=== PATIENT | female | born 1950 | race Hispanic/Latino ===

== ENCOUNTER → 2024-11-29 | Outpatient (CLI) | payer OTHER ==
--- NOTE | 2024-11-29 16:20 | HMCSR ---
APPROVED REPORT EXAM: Two-dimensional and M-mode echocardiogram with Doppler and color Doppler. INDICATION ICD: Cardiac murmur, unspecified R01.1 2D Dimensions RVDd4.3 cmLVEF(%)55.9 (>50%)LVED Vol(simp.)75.0 mL IVSd1.0 (0.7-1.1cm)FS(%)30 %LVES Vol(simp.)33.0 mL LVDd5.6 (3.8-5.6cm)LA (2D)4.1 (1.6-4.0cm)LVEF(%, simp.)56 % PWd0.9 (0.7-1.1cm)Ao Root(2D)2.8 (2.0-3.7cm)LA ESV INDEX (BP)33.93 mL/m2 LVDs4.0 (2.5-4.0cm)LVOT diam1.6 (1.8-2.4cm) IVC diam1.6 cm M-Mode Dimensions EPSS0.9 cm LA (MM)4.3 (1.6-4.0cm) Ao Root(MM)2.9 (2.0-3.7cm) Aortic Valve AoV Vmax1.6 m/[place] Peak GR10.3 mmHgLVOT Vmax1.3 m/s AoV VTI0.4 mAo Mean GR5.3 mmHgLVOT VTI0.30 m BARI (VMAX)1.78 cm2Al P1/2T434 msAVA (VTI) 1.8 cm2 Mitral Valve MV E Vmax59.9 cm/sDECEL Pujf304 ms MV A Dfda167.9 cm/sP 1/2 T46 ms E/A ratio0.6MVA (PHT)4.8 cm2 TDI E/E' Axpxvf69.1E/E' Lateral9.2 Medial E' Peak V3.97 cm/sLateral E' Peak V6.49 cm/s Pulmonary Valve PV Vmax1.1 m/sPV VTI0.27 mPV Mean GR2.8 mmHg PV Peak GR5.0 mmHg Left Ventricle The left ventricle is normal size. There is normal LV segmental wall motion. There is normal left juan tricular wall thickness. LVEF is 55-60%. Indeterminate diastolic dysfunction. Right Ventricle The right ventricle is normal size. The right ventricular systolic function is normal. Atria The left atrium is mildly dilated. The right atrium size is normal. Aortic Valve The aortic valve is normal in structure. Trace-mild aortic regurgitation. There is no aortic valvular stenosis. Mitral Valve The mitral valve is normal in structure. Mitral regurgitation is trace There is no mitral valve steno sis. Tricuspid Valve The tricuspid valve is normal in structure. There is trace tricuspid valve regurgitation noted. Pulmonic Valve Pulmonic valve is not well visualized. There is no pulmonic valvular regurgitation. Great Vessels The aortic root is normal in size. The IVC is normal in size and collapses >50% with inspiration. Pericardium There is no pericardial effusion. Other Information Quality : Average Conclusion The left ventricle is normal size. LVEF is 55-60% with normal LV segmental wall motion. Indeterminate diastolic dysfunction. The right ventricular systolic function is normal. The left atrium is mildly dilated. Trace-mild aortic regurgitation. There is no pericardial effusion.
== END | disposition home or self-care (01) ==
LOC: RAH 13:00
PROVIDERS: ATTEND Internal Medicine
DX: I35.1 Nonrheumatic aortic (valve) insufficiency (principal); R01.1 Cardiac murmur, unspecified
CPT/HCPCS: 93306

== ENCOUNTER → 2024-12-21 | Outpatient (CLI) | payer OTHER ==
--- NOTE | 2024-12-21 11:31 | HMCIMG ---
CLINICAL INDICATION: Asymptomatic menopausal state COMPARISON: None TECHNIQUE: Bone densitometry is performed of the lumbar spine and left hip. FINDINGS: Total BMD of lumbar spine is 1.030 g/cm2 with a T-score of -0.2 and Z-score is 2.1. Total BMD of left hip is 0.851 g/cm2 with a T-score of -0.8 and Z-score is 0.8. FRAX SCORE: The 10 year fracture risk for a major osteoporotic fracture and hip fracture major osteoporotic fracture 5.8% and hip fracture 0.9% IMPRESSION: 1. Osteopenia of left hip 2. Normal lumbar spine 3. Recommend follow-up in 13 months World Health Organization criteria for BMD interpretation classify patients as Normal (T-score at or above -1.0), Osteopenic (T-score between -1.0 and -2.5), or Osteoporotic (T-score at or below -2.5). FRAX SCORE: A. All treatment decisions require clinical judgment and consideration of individual patient factors, including patient preferences, comorbidities, previous drug use, risk factors not captured in the FRAX model (e.g., frailty, falls, vitamin D deficiency, increased bone turnover, interval significant decline in bone density) and possible [id number]-estimation of fracture risk by FRAX. B. In addition, the NOF Guide recommends that FDA-approved medical therapies be considered in postmenopausal women and men age greater than or equal to 50 years with a: i. Hip or vertebral (clinical or morphometric) fracture. ii. T-score of less than or equal to -2.5 at the spine or hip. iii. Ten-year fracture probability by FRAX of greater than or equal to 3% for hip fracture of greater than or equal to 20% for major osteoporotic fracture.
== END | disposition home or self-care (01) ==
LOC: RAH 10:33
PROVIDERS: ATTEND Internal Medicine
DX: M85.88 Other specified disorders of bone density and structure, other site (principal); Z78.0 Asymptomatic menopausal state
CPT/HCPCS: 77080